=== PATIENT | male | born 1970 | race Caucasian/White ===

== ENCOUNTER → 2022-01-18 10:01 | Outpatient (CLI) | payer OTHER, SELFPAY ==
--- NOTE | ~2022-01-18 | MR_ITS ---
EXAMINATION: MR lumbar spine wo con DATE: 01/18/2022 10:23 INDICATION: Low back pain radiating down the left leg. TECHNIQUE: Magnetic resonance imaging (MRI) of the lumbar spine was performed without intravenous con trast. Sequences included sagittal T2-weighted FSE, sagittal T2-weighted FS FSE, sagittal T1-weighted FSE, and axial T2-weighted FSE. COMPARISON: None FINDINGS: Bone alignment is normal. Vertebral body heights are normal. There is mildly decreased disc height at L4-L5 and L5-S1. The distal spinal cord signal intensity is normal. The conus medullaris i s at the 12-L1. The following disc levels are specifically discussed: L1-L2: The disc does not extend beyond the endplate margin. There is mild bilateral facet joint osteo arthritis. There is no neural foraminal stenosis. There is no central canal stenosis. L2-L3: The disc does not extend beyond the endplate margin. There is moderate bilateral facet joint o steoarthritis. There is no neural foraminal stenosis. There is no central canal stenosis. L3-L4: The disc does not extend beyond the endplate margin. There is mild bilateral facet joint osteo arthritis. There is no neural foraminal stenosis. There is no central canal stenosis. L4-L5: There is a left subarticular zone extrusion with mass effect on left L5 nerve root in left lat eral recess. There is mild bilateral facet joint osteoarthritis. There is mild bilateral neural roger inal stenosis. There is mild central canal stenosis. There is moderate stenosis of left lateral reces s. L5-S1: The disc is bulging and has an annular fissure. There is severe bilateral facet joint osteoart hritis. There is mild bilateral neural foraminal stenosis. There is mild central canal stenosis. IMPRESSION: 1. Extrusion at L4-L5 with mass effect on left L5 nerve root. Otherwise mild lumbar spondylosis. Reviewed, dictated and finalized at location A. IMPRESSION: 1. Extrusion at L4-L5 with mass effect on left L5 nerve root. Otherwise mild eda mbar spondylosis.
== END ==
PROVIDERS: PCP Internal Medicine; Visit Provider Orthopaedic Surgery
DX: M51.26 Other intervertebral disc displacement, lumbar region (principal); M47.896 Other spondylosis, lumbar region
CPT/HCPCS: 72148

== ENCOUNTER 2023-09-08 14:37 | Emergency (ER) | payer OTHER, SELFPAY ==
[2023-09-08 14:45] VITALS: BP 140/97; PULSE 116; RESP 16; TEMP 36.9; O2SAT 100
--- NOTE | 2023-09-08 14:58 | ED.GENADULT ---
HPI - General Adult General Chief complaint: Chest Pain Stated complaint: Elevated blood pressure Source: patient and RN notes reviewed Mode of arrival: ambulatory Limitations: no limitations History of Present Illness HPI narrative: Patient presents today complaining of elevated blood pressure and heart rate. He has been keeping a record for 2-3 months and states today it was 140s over 90s at home and his heart rate was 117 and he became concerned. he denies any additional symptoms. He is not on a blood pressure medication and has an appointment with his new PCP on September 18. History of anxiety for which he takes sertraline and clonazepam he also takes atorvastatin for his cholesterol. Related Data Home Medications Medication Instructions Recorded Confirmed atorvastatin 10 mg tablet (Lipitor) 10 mg PO DAILY 12/30/21 09/08/23 gabapentin 600 mg tablet 600 mg PO TID 12/30/21 09/08/23 sertraline 50 mg tablet (Zoloft) 50 mg PO DAILY 12/30/21 09/08/23 clonazepam 1 mg tablet 1 mg PO HS 09/08/23 09/08/23 Allergies Allergy/AdvReac Type Severity Reaction Status Date / Time No Known Allergies Allergy Verified 09/08/23 14:45 Review of Systems Review of Systems: CONSTITUTIONAL: Denies body aches, fever, chills, or sweats. EYES: Denies visual changes, redness, or discharge. ENT: Denies rhinorrhea, congestion, sore throat, or otalgia. CARDIOVASCULAR: Denies chest pain, palpitations, or edema. RESPIRATORY: Denies cough or dyspnea. GASTROINTESTINAL: Denies abdominal pain, nausea, vomiting, or diarrhea. GENITOURINARY: Denies dysuria or hematuria. SKIN: Denies rash, itching, or wounds. MUSCULOSKELETAL: Denies back pain, joint pain, or myalgia. NEUROLOGIC: Denies headache, numbness, tingling, or weakness. PSYCH: + anxiety. [facility] Past Medical History Medical History Anxiety Degenerative joint disease (DJD) of hip Diarrhea Pain, radicular, lumbar Family History Family History Other Asthma Family history of diabetes mellitus Family history of high cholesterol Family history of pancreatic cancer Heart disease Hypertension Social History Social History Smoking status: Never smoker Alcohol intake: current Alcohol use details: 3 per month Substance use: never Living arrangements: with family Occupation/Education: retired Additional occupation/education comments: [employer] Gender identity (if verbalized by the patient): Male Comments At time of signature, I have reviewed and agree with nursing past medical, surgical, social and family history unless otherwise noted. Please see nursing chart for further information. There is no relevant family history pertinent to the presenting complaint Exam Narrative: GENERAL: Well-appearing, well-nourished, and in no acute distress. HEAD: Normocephalic, atraumatic. EYES: EOMI. No redness or drainage. Conjunctivae normal. ENT: Mucous membranes pink and moist. NECK: Normal AROM. CHEST: No respiratory distress. Clear to auscultation. HEART: Regular rhythm. + tachycardia. EXTREMITIES: Normal range of motion. No edema. SKIN: Warm, dry, no rash. Capillary refill normal. Normal skin turgor. NEURO: No focal deficits. Alert and oriented x3. Gait steady. PSYCH: Anxious Course Course Level of Care: Express Care Visit Vital Signs Vital signs: Vital Signs Temperature 98.5 F 09/08/23 14:45 Pulse Rate 116 H 09/08/23 14:45 Respiratory Rate 16 09/08/23 14:45 Blood Pressure 140/97 H 09/08/23 14:45 Pulse Oximetry 100 09/08/23 14:45 Temperature 98.5 F 09/08/23 14:45 Pulse Rate 116 H 09/08/23 14:45 Respiratory Rate 16 09/08/23 14:45 Blood Pressure 140/97 H 09/08/23 14:45 Pulse Oximetry 100 09/08/23 14:45 Reviewed Medi
== END 2023-09-08 15:09 | disposition home or self-care (01) ==
PROVIDERS: Emergency Provider Nurse Practitioner; PCP Family Medicine
DX: R03.0 Elevated blood-pressure reading, without diagnosis of hypertension (principal); F41.9 Anxiety disorder, unspecified
CPT/HCPCS: 99211; G0463

== ENCOUNTER 2023-10-12 10:36 | Outpatient (CLI) | payer OTHER, SELFPAY ==
--- NOTE | 2023-10-17 16:04 | WPDHOLTEREM ---
Holter/Event Monitor Holter/Event Monitor Date of procedure: 10/12/23 Holter/Event Procedure: 48 Hr Holter Monitor Indications: Bradycardia Conclusion: 1. 48 hour holter monitor on 10/12/23. 2. Underlying rhythm is sinus rhythm. HR range 47-145 bpm; average HR 72 bpm. HR at 47 bpm was at 23:20. HR at 145 bpm was at 11:05. 3. There are 25 premature supraventricular complexes. No supraventricular tachycardia. 4. No premature ventricular complexes. No ventricular tachycardia. 5. No sinoatrial or atrioventricular blocks. No significant pauses greater than 2 seconds. 6. Patient reports symptoms of dizziness, lightheadedness, palpitations which demonstrate sinus rhythm, HR range 70-106 bpm.
== END 2023-10-12 10:37 | disposition home or self-care (01) ==
LOC: ANHCARD 10:37
PROVIDERS: PCP Family Medicine; Visit Provider Physician Assistant
DX: R00.0 Tachycardia, unspecified (principal); R53.83 Other fatigue; I49.8 Other specified cardiac arrhythmias
CPT/HCPCS: 93225; 93226

== ENCOUNTER 2023-11-14 22:38 | Observation (INO) | payer OTHER, SELFPAY ==
--- NOTE | ~2023-11-14 | MR_ITS ---
MRI of the lumbar spine Clinical History: Radiculopathy Technique: Axial T2-weighted images, and sagittal T1-weighted, T2-weighted, and T2 fat-sat images wer e acquired. Findings: There is no fracture or subluxation of the lumbar spine. Vertebral bodies maintain normal h eight and alignment. No bone marrow signal reality seen. At L1-L2, L2-L3, L3-L4, there is no disc bulge or herniation. There are moderate to advanced facet lorena int degenerative changes at these levels. No spinal canal stenosis at these levels. There is mild lef t neural foraminal narrowing at L2-L3. Remaining neural foramina at these levels are preserved. At L4-L5, there is disc protrusion extending from the central region to the left foraminal region, wi th moderate facet arthropathy bilaterally. There is mild central canal stenosis. There is moderate bi lateral neural foraminal narrowing. At L5-S1, there is mild disc bulge with moderate facet arthropathy. No central canal stenosis. Tiny f issure present. There is mild to moderate right neural foraminal narrowing. Left neural foramen prese rved. Paravertebral soft tissues are unremarkable. Impression: Moderate degenerative spondylosis at L4-L5 and L5-S1, as detailed above. Reviewed, dictated and finalized at location . Impression: Moderate degenerative spondylosis at L4-L5 and L5-S1, as detailed above.
--- NOTE | ~2023-11-14 | CT_ITS ---
Noncontrast CT scan of the lumbar spine CLINICAL HISTORY: Back pain TECHNIQUE: Axial noncontrast imaging of the lumbar spine was performed. Sagittal and coronal reformat dylan images were constructed. Dose reduction technique was used on this scan by utilizing automated ex posure control and iterative reconstruction technique. The dose-length product (DLP) was 719.92 mGy-c m. FINDINGS: There is no fracture or subluxation of the lumbar spine. Vertebral bodies maintain normal h eight and line. Vertebral disc spaces are well preserved. At L1-L2, there is no disc bulge or herniation. There is minimal facet joint degenerative change. No spinal canal stenosis. Probable minimal left neural foraminal narrowing. Right neural foramen preserv ed. At L2-L3, there is no significant disc bulge or herniation. There is minimal facet arthropathy. No sp inal canal stenosis. There is mild left neural foraminal narrowing. L3-L4, there is no disc bulge or herniation. There is mild to moderate facet arthropathy. No central canal stenosis or definite neural foraminal narrowing. At L4-L5, there is disc protrusion at the left paracentral region with mild facet arthropathy. There is moderate to possibly severe canal stenosis/thecal sac compression. There is moderate bilateral eran ral foraminal narrowing. At L5-S1, there is no significant disc bulge or herniation. No spinal canal stenosis. There is modera te right neural foraminal narrowing, and mild left neural foraminal narrowing. Paravertebral soft tissues are unremarkable. Impression: Left paracentral disc protrusion at L4-L5 with moderate to severe spinal canal stenosis/thecal sac co mpression. Neural foraminal narrowing at L4-L5 and L5-S1 levels, as detailed above. Possible minimal neural foraminal narrowing at L1-L2 and L2-L3, as detailed above. Reviewed, dictated and finalized at location . Impression: Left paracentral disc protrusion at L4-L5 with moderate to severe spinal canal stenosis/thecal sac compression. Neural foraminal narrowing at L4-L5 and L5-S1 levels, as detailed above. Possible minimal neural foraminal narrowing at L1-L2 and L2-L3, as detailed abo ve.
[2023-11-14 22:44] VITALS: BP 146/93; PULSE 81; RESP 14; TEMP 36.7; O2SAT 99
[2023-11-14 23:17] VITALS: PULSE 79; RESP 16; O2SAT 96
[2023-11-14 23:30] VITALS: BP 154/95; PULSE 82; RESP 12; O2SAT 97
[2023-11-14 23:31] VITALS: PULSE 81; RESP 19; O2SAT 98
[2023-11-14 23:45] VITALS: BP 155/96; PULSE 77; RESP 16; O2SAT 100
--- NOTE | 2023-11-14 23:45 | ED.BACK ---
HPI - Back Pain/Injury General Chief Complaint: Fall <LIZBETH Winston Last Filed: 11/15/23 01:48> Stated Complaint: BACK PAIN X 1 MONTH, FALL <LIZBETH Winston Last Filed: 11/15/23 01:48> Time Seen by Provider: 11/14/23 23:38 <LIZBETH Winston Last Filed: 11/15/23 01:48> Source: patient <LIZBETH Winston Last Filed: 11/15/23 01:48> Mode of arrival: EMS <LIZBETH Winston Last Filed: 11/15/23 01:48> Limitations: no limitations <LIZBETH Winston Last Filed: 11/15/23 01:48> History of Present Illness HPI Narrative: This is a 53 year old male that presents to the ER for low back pain. Ongoing over the last month. Reports he was rolling to get out of bed tonight and his back locked up on him. He lowered himself to the floor. Reports since he has had pain and spasming in his low back and into his left leg. Reports tingling in his left leg. Denies decreased ROM, saddle anesthesia or bowel/bladder incontinence. <LIZBETH Winston Last Filed: 11/15/23 01:48> Related Data Home Medications: Home Medications Medication Instructions Recorded Confirmed atorvastatin 10 mg tablet (Lipitor) 10 mg PO DAILY 12/30/21 10/19/23 gabapentin 600 mg tablet 600 mg PO TID 12/30/21 10/19/23 sertraline 50 mg tablet (Zoloft) 50 mg PO DAILY 12/30/21 10/19/23 clonazepam 1 mg tablet 1 mg PO HS 09/08/23 10/19/23 tadalafil 10 mg tablet 10 mg PO DAILY PRN 09/18/23 10/19/23 <LIZBETH Winston Last Filed: 11/15/23 01:48> Allergies/Adverse Reactions: Allergies Allergy/AdvReac Type Severity Reaction Status Date / Time No Known Allergies Allergy Verified 11/14/23 22:51 <LIZBETH Winston Last Filed: 11/15/23 01:48> Review of Systems Review of Systems: CONSTITUTIONAL: Denies fever MUSCULOSKELETAL: Reports back pain, joint pain, and myalgia. NEUROLOGIC: Denies weakness. <Holly Escalante PA-C - Last Filed: 11/15/23 01:48> All systems reviewed & are unremarkable except as noted in HPI and below <Holly Escalante PA-C - Last Filed: 11/15/23 01:48> [facility] Past Medical History Medical History: Medical History Anxiety Degenerative joint disease (DJD) of hip Erectile dysfunction ANA (generalized anxiety disorder) HLD (hyperlipidemia) HTN (hypertension) Insomnia Pain, radicular, lumbar <LIZBETH Winston Last Filed: 11/15/23 01:48> Surgical History Surgical History: Surgical History History of appendectomy History of tonsillectomy History of vasectomy twice <LIZBETH Winston Last Filed: 11/15/23 01:48> Family History Family History: Family History Father Asthma Family history of pancreatic cancer Diabetes mellitus Hypertension Depression Heart disease Mother Diabetes mellitus Hypertension Heart disease Other Family history of diabetes mellitus Family history of high cholesterol <LIZBETH Winston Last Filed: 11/15/23 01:48> Social History Social History: Social History Social History: Smoking status: Never smoker Second hand tobacco smoke exposure: No Alcohol intake: current Alcohol use details: 3 per month Substance use: never Substance use type: does not use Do You Feel Safe in your Home?: Yes Lack of Transportation: No Lack of Food: Never True Current Housing: I Have Housing Concerned About Future Housing: No Difficulty Paying Gas/Electric Bills: No Difficulty Paying for Meds: No Currently Unemployed: YES Education: Don't Know Difficulty w/ Childcare or Family Care: No Living arrangements: with family Occupation/Education: retired Additional occupation/education comments: [employer]
[2023-11-14 23:46] VITALS: PULSE 73; RESP 15; O2SAT 100
[2023-11-14] MEDS: ACETAMINOPHEN 500 MG TABLET 1000 MG PO (23:53)
[2023-11-14] MEDS: diazePAM INJ (*CRX) 10 MG/2 ML SYRINGE 5 MG IV PUSH (23:53)
[2023-11-15] VITALS (15 sets, daily range): BP systolic 119–155; BP diastolic 82–98; PULSE 74–106; RESP 11–20; TEMP 36.9–37.2; O2SAT 94–100; BMI 28.8
--- NOTE | 2023-11-15 01:12 | PC.NURSE ---
this rn assumed care of patient. this rn took patient report from JIN Wilson.
[2023-11-15] MEDS: ONDANSETRON INJ 4 MG/2 ML VIAL IV PUSH (01:40)
[2023-11-15] MEDS: MORPHINE SULFATE (*CRX) 4 MG/ML INJ IV PUSH (01:40)
--- NOTE | 2023-11-15 02:04 | PM.IMHP ---
H&P: HPI History of Present Illness Date/Time: 11/15/23 02:04 Chief Complaint: Fall, Back Pain Narrative: 53 y/o M presents here with fall and subsequent back pain with PMH of HTN, ANA, HLD, insomnia, and erectile dysfunction. Patient presented here from home via EMS for further evaluation of back pain. Patient reports that he was getting out of bed to use the restroom around 1030pm when his lower back became sharp, with radiation into left buttock/hip/thigh, posterior, and accompanied by muscle spasms. Patient then had a near ground level fall. Patient felt his lower back seize up and he rolled/lowered himself onto the floor without any additional pain or injuries. Reporting numbness to his buttocks/hip and posterior RLE. Patient reports there has been partial resolution of the numbness. No numbness to his genitalia or perineum. No loss of bowel or bladder. Patient had similar pain approximately 4 weeks ago, was seen by his PCP who prescribed him steroids. The steroids initially helped for 2 days and then the pain returned. Patient has not been doing any lifting or strenuous activity over the last 4 weeks, did have to restrain his 90 lb dog before going to bed last night. Most recent MRI of spine was in 2021. EMS administered 15 mg of Toradol while in route to the hospital. Given morphine, Tylenol, and diazepam without relief from lower back pain. CT of the lumbar spine was was unrevealing. Has history of lumbar radiculopathy. Has previously tried conservative management, attended physical therapy and saw a chiropractor in 2020. No further therapy since. Initial VS at presentation: 98.0? F, HR 81, RR 14, 146/93, and 99% on RA. ED workup showed: No leukocytosis, no anemia, sodium 134, creatinine 0.9, glucose 135. CT of the lumbar spine showed no acute fractures. Review of Systems Review of Systems: All systems reviewed & are unremarkable except as noted in HPI and below PMFSH Past Medical History Medical History Anxiety Degenerative joint disease (DJD) of hip Erectile dysfunction ANA (generalized anxiety disorder) HLD (hyperlipidemia) HTN (hypertension) Insomnia Pain, radicular, lumbar Surgical History Surgical History History of appendectomy History of tonsillectomy History of vasectomy twice Family History Family History (Updated 11/15/23 @ 05:05 by Toshia Hameed RN) Father Diabetes mellitus Depression Heart disease Family history of pancreatic cancer Hypertension Asthma Mother Diabetes mellitus Heart disease Hypertension History of blood clots Other Family history of diabetes mellitus Family history of high cholesterol Social History Social History Social History: Smoking status: Never smoker Second hand tobacco smoke exposure: No Alcohol intake: current Alcohol use details: 3 per month Substance use: never Substance use type: does not use Do You Feel Safe in your Home?: Yes Lack of Transportation: No Lack of Food: Never True Current Housing: I Have Housing Concerned About Future Housing: No Difficulty Paying Gas/Electric Bills: No Difficulty Paying for Meds: No Currently Unemployed: No Education: Don't Know Difficulty w/ Childcare or Family Care: No Living arrangements: with family Occupation/Education: retired Additional occupation/education comments: [employer] Gender identity (if verbalized by the patient): Male Sexual Orientation (if Verbalized by the Patient): Straight or Heterosexual Spiritual care concerns: No Meds Home Medications and Allergies Home Medications Medication Instructions Recorded Confirmed Type atorvastatin 10 mg tablet (Lipitor) 10 mg PO HS 12/30/21 11/15/23 History gabapentin 600 mg tablet 600 mg PO TID 12/30/21
[2023-11-15 02:13] LABS: Basophils Percent Auto 0.3 % (0.2-1.2); Eosinophils Absolute Auto 0.1 K/mm3 (0-0.3); Eosinophils Percent Auto 0.6 % (0-4.4); Hematocrit 42.1 % (42.0-52.0); Immature Granulocyte Absolute 0.05 K/mm3 (0.00-0.031); Immature Granulocyte Percent A 0.5 % (0-0.5); Lymphocytes Absolute Auto 1.11 K/mm3 (0.9-3.2); Lymphocytes Percent Auto 11.8 % (18.3-44.2); Mean Corpuscular HGB Conc 33.3 g/dl (32-36); Mean Corpuscular Hemoglobin 27.8 pg (26-34); Mean Corpuscular Volume 83.5 fl (80-100); Mean Platelet Volume 12.1 fl (7.4-10.4); Monocytes Absolute Auto 0.3 K/mm3 (0.1-0.6); Monocytes Percent Auto 3.6 % (2.6-8.5); Neutrophils Absolute Auto 7.8 K/mm3 (1.3-6.7); Neutrophils Percent Auto 83.2 % (45.5-73.1); Platelet Count Result 155 k/mm3 (150-375); Red Blood Count 5.04 M/mm3 (4.6-6.20); Red Cell Distribution Width 13.5 % (11.5-14.5); White Blood Count 9.4 K/mm3 (4.5-10.0)
[2023-11-15 02:29] LABS: Anion Gap 3 mmol/L (4-12); Blood Urea Nitrogen 18 mg/dL (9-20); Calcium 9.5 mg/dL (8.4-10.2); Carbon Dioxide 25 mmol/L (22-30); Chloride 106 mmol/L (98-107); Estimated CRCL calculation 90 ml/min; Estimated Glomerular Filt Rate > 60; Glucose 135 mg/dL (65-110); Potassium 4.2 mmol/L (3.4-5.0); Sodium 134 mmol/L (137-145)
[2023-11-15] MEDS: MORPHINE SULFATE (*CRX) 2 MG/ML INJ IV PUSH ×3 (04:57→14:32)
--- NOTE | 2023-11-15 05:03 | ADMGEN ---
This patient, Vasquez Hawkins, was admitted to 3 [facility] Surg Room 313-01. Patient/family oriented to hospital policies and general routines including ID bracelet, bed and alarms, visiting hours, pain management, procedures, bathroom and other care routines, personal items, smoking policy, room service/diet, and visiting hours. Information on how to activate the Rapid Response Team has been discussed. Patient/Family are encouraged to report perceived risks to care and to ask questions if they do not understand what they are told or what they should do.
[2023-11-15] MEDS: oxyCODONE HCL (*CRX) 2.5 MG TAB IR PO ×3 (05:59→22:28)
[2023-11-15 07:23] LABS: Hemoglobin A1C 5.5 % (<5.7)
[2023-11-15] MEDS: lisinopriL 10 MG TABLET PO (09:55)
[2023-11-15] MEDS: predniSONE 40 MG, predniSONE 10 MG 50 MG PO (09:56)
[2023-11-15] MEDS: GABAPENTIN 300 MG CAPSULE 600 MG PO ×3 (09:56→16:08)
[2023-11-15] MEDS: SERTRALINE HCL 50 MG TABLET PO (09:56)
--- NOTE | 2023-11-15 13:11 | WPDNEURCNPN ---
Assessment and Plan Assessment and plan (1) Left lumbar radiculopathy: Code(s): M54.16 - Radiculopathy, lumbar region Status: Acute (2) Lumbar spondylosis: Code(s): M47.816 - Spondylosis without myelopathy or radiculopathy, lumbar region Status: Acute Assessment and Plan: Patient is a pleasant 53-year-old male who presents with acute exacerbation of back pain and spasms with left leg symptoms. His symptoms started approximately 1 month ago but in the last day or so it has severely progressed. Patient also reports numbness and tingling in his left leg in an S1 distribution. his lumbar MRI obtained on today's date shows degenerative spondylosis with an ongoing paracentral left-sided disc herniation/ protrusion at L4-5 contributing to moderate stenosis in addition to bilateral facet severe arthropathy and thickened ligamentum flavum. There is narrowing of the lateral recess, left greater than right. On exam the patient has mild weakness of the left dorsiflexion that is 4/5, and left EHL is 4-/5. though has decreased sensation to pinprick left S1 distribution greater than L5 but decreased in both distributions in the left foot compared to the right. I discussed the MRI findings with the patient and went over his diagnosis. At this point in time we recommend continued conservative treatments in the form of muscle relaxants, pain control, short course of steroids to see if we can get him feeling better. We can plan to have the patient follow-up with us in the clinic setting to track his progress and discuss possible further interventions which would include referral to pain management and PT. if his symptoms do not improve then we could also discuss possible surgical intervention with Dr. Mccabe. Patient and his family give understanding of this and agree with the planned. Consult date: 11/15/23 HPI: Vasquez Hawkins is a 53 year old male who presented to the ER for intractable back spasms and pain with left leg symptoms. He states his back pain started to bother him approximately 1 month ago after rolling to get out of bed. He initially just had low back pain with a locked up feeling but then shortly thereafter started noticie pain radiating into the left hip area and hamstring, and then the lateral aspect of his lower leg and into this foot. He also reports tingling sensation along this distribution and into his toes. Patient states his pain worsened and he was not able to deal with the spasms, thus prompting him to present to the emergency room. He denies any right leg symptoms, no bladder or bowel dysfunction, and no prior history of having back surgeries. He admits to having back pain in the past that led to workup including an MRI in 2021, he states he was referred to Pain Management but by the time he had this appointment his symptoms mostly resolved and he did not proceed in doing any type of treatments with them. Patient denies any weakness but states he's not been able to ambulate in the last couple of days due to the severity of his discomfort. Review of Systems Review of Systems: All systems reviewed & are unremarkable except as noted in HPI and below PMFSH Past Medical History Medical History Anxiety Degenerative joint disease (DJD) of hip Erectile dysfunction ANA (generalized anxiety disorder) HLD (hyperlipidemia) HTN (hypertension) Insomnia Pain, radicular, lumbar Surgical History Surgical History History of appendectomy History of tonsillectomy History of vasectomy twice Family History Family History (Updated 11/15/23 @ 05:05 by Toshia Hameed RN) Father Diabetes mellitus Depression Heart disease Family history of pancreatic cancer Hypertension Asthma Mother Diabetes mellitus Heart disease Hypertension History of blood clots Other Family
--- NOTE | 2023-11-15 14:16 | PM.IMPN ---
Progress Note: A&P Assessment and Plan (1) Left lumbar radiculopathy: Code(s): M54.16 - Radiculopathy, lumbar region Status: Acute Assessment and Plan: - CT lumbar spine: shows Left paracentral disc protrusion at L4-L5 with moderate to severe spinal canal stenosis/thecal sac compression - given Toradol, morphine, Valium, Tylenol without relief - continue pain control - add steroids, prednisone 50 mg x 6 days - MRI, previous (2021): Extrusion at L4-L5 with mass effect on left L5 nerve root. Otherwise mild lumbar spondylosis. - neurosurgery consultation - neurology consultation - MRI ordered (2) HTN (hypertension): Code(s): I10 - Essential (primary) hypertension Status: Acute Assessment and Plan: - chronic, and stable Bp at 126/82 Subjective Date/time seen: 11/15/23 14:16 Interval history: 53 y/o M presents here with fall and subsequent back pain with PMH of HTN, ANA, HLD, insomnia, and erectile dysfunction. Patient presented here from home via EMS for further evaluation of back pain.?complains of severe low back pains radiating down left buttock down leg and numbness in the foot Pt having urgent MRI L/S today Neurology and neurosurgery on board Continue pain control for now CT lumbar spine shows - Left paracentral disc protrusion at L4-L5 with moderate to severe spinal canal stenosis/thecal sac compression. Review of Systems Review of Systems: Severe low back pain with left buttock and left leg and foot numbness Exam Const: General: no acute distress and uncomfortable Other: , male, nontoxic appearance HENMT: Face/Nose/Sinus: Normal nares present Mouth: Yes moist mucous membranes Eyes: General: appearance normal, both eyes and all related structures Sclera: sclerae normal Pupils: Equal, round and reactive pupils present EOM: EOMs intact bilaterally Resp: Effort & Inspection: normal respiratory effort Auscultation: clear to auscultation bilaterally Cardio: Rate: regular rate Rhythm: regular rhythm Other: S1-S2 present without murmur, rub, ectopy GI: Other: Rounded, nontender Skin: General skin exam: normal color and no rashes or lesions noted Wounds: no wounds Neuro: Speech: normal speech Other: Difficult exam due to pain. LLE weakness 4/5 with plantar flexion and dorsiflexion, 5/5 in upper extremities and RLE. Sensation changes to posterior thigh, buttock, hip. Patient unable to tolerate exam. Extrem: General: normal to inspection Psych: Mental Status: mental status grossly normal Other: Pained. Fair insight and judgment, pleasant. Objective Data Vital Signs Vital Signs: Vital Signs - 24 hr 11/14/23 22:44 11/14/23 23:17 11/14/23 23:30 Temperature 36.7 C Pulse Rate 81 79 82 Respiratory Rate 14 16 12 Blood Pressure 146/93 H 154/95 H Pulse Oximetry 99 96 97 Oxygen Delivery Room Air 11/14/23 23:31 11/14/23 23:45 11/14/23 23:46 Temperature Pulse Rate 81 77 73 Respiratory Rate 19 16 15 Blood Pressure 155/96 H Pulse Oximetry 98 100 100 Oxygen Delivery 11/15/23 00:00 11/15/23 00:01 11/15/23 00:15 Temperature Pulse Rate 87 85 78 Respiratory Rate 13 15 16 Blood Pressure 139/92 H Pulse Oximetry 94 95 98 Oxygen Delivery 11/15/23 00:51 11/15/23 01:00 11/15/23 01:31 Temperature Pulse Rate 84 84 74 Respiratory Rate 13 13 14 Blood Pressure 155/88 H 143/87 H 155/83 H Pulse Oximetry 100 100 99 Oxygen Delivery 11/15/23 02:00 11/15/23 02:30 11/15/23 03:05 Temperature Pulse Rate 79 88 85 Respiratory Rate 11 L 14 14 Blood Pressure 145/86 H 119/96 H 143/98 H Pulse Oximetry 98 97 97 Oxygen Delivery 11/15/23 03:08 11/15/23 03:31 11/15/23 06:00 Temperature 37.2 C Pulse Rate 79 85 92 Respiratory Rate 13 16 20 Blood Pressure 143/98 H 149/83 H 126/82 Pulse Oximetry 98 97 97 Oxygen Delivery Intake/Output Intake/Output: Intake &
[2023-11-15] MEDS: diazePAM (*CRX) 5 MG TABLET PO (16:08)
[2023-11-15] MEDS: ACETAMINOPHEN 500 MG TABLET 1000 MG PO (21:28)
[2023-11-15] MEDS: ATORVASTATIN 10 MG TABLET PO (21:28)
[2023-11-15] MEDS: KETOROLAC 30 MG/ML VIAL (*BKC) IV PUSH (21:43)
[2023-11-16] MEDS: diazePAM (*CRX) 5 MG TABLET PO ×3 (00:10→13:58)
[2023-11-16 06:00] VITALS: BP 144/92; PULSE 82; RESP 20; TEMP 36.8; O2SAT 95
[2023-11-16] MEDS: oxyCODONE HCL (*CRX) 2.5 MG TAB IR PO ×4 (06:15→21:08)
[2023-11-16] MEDS: ACETAMINOPHEN 500 MG TABLET 1000 MG PO (06:15)
[2023-11-16 06:38] LABS: Hematocrit 44.2 % (42.0-52.0); Hemoglobin 14.2 g/dL (14.0-18.0); Mean Corpuscular HGB Conc 32.1 g/dl (32-36); Mean Corpuscular Hemoglobin 27.3 pg (26-34); Mean Corpuscular Volume 84.8 fl (80-100); Mean Platelet Volume 12.3 fl (7.4-10.4); Platelet Count Result 157 k/mm3 (150-375); Red Blood Count 5.21 M/mm3 (4.6-6.20); Red Cell Distribution Width 13.5 % (11.5-14.5); White Blood Count 7.5 K/mm3 (4.5-10.0)
[2023-11-16 06:46] LABS: Anion Gap 4 mmol/L (4-12); Blood Urea Nitrogen 16 mg/dL (9-20); Calcium 9.6 mg/dL (8.4-10.2); Carbon Dioxide 28 mmol/L (22-30); Chloride 106 mmol/L (98-107); Estimated CRCL calculation 82 ml/min; Estimated Glomerular Filt Rate > 60; Glucose 108 mg/dL (65-110); Potassium 4.2 mmol/L (3.4-5.0); Sodium 138 mmol/L (137-145)
[2023-11-16] MEDS: GABAPENTIN 300 MG CAPSULE 600 MG PO ×3 (09:16→16:35)
[2023-11-16] MEDS: predniSONE 40 MG, predniSONE 10 MG 50 MG PO (09:16)
[2023-11-16] MEDS: LIDOCAINE 5% PATCH 1 PATCH TRANSDERM (09:18)
--- NOTE | 2023-11-16 12:42 | PM.IMPN ---
Progress Note: A&P Assessment and Plan (1) Left lumbar radiculopathy: Code(s): M54.16 - Radiculopathy, lumbar region Status: Acute Assessment and Plan: - CT lumbar spine: shows Left paracentral disc protrusion at L4-L5 with moderate to severe spinal canal stenosis/thecal sac compression - given Toradol, morphine, Valium, Tylenol without relief - continue pain control - add steroids, prednisone 50 mg x 6 days - MRI, previous (2021): Extrusion at L4-L5 with mass effect on left L5 nerve root. Otherwise mild lumbar spondylosis. - neurosurgery consultation - neurology consultation - MRI obtained on today's date shows degenerative spondylosis with an ongoing paracentral left-sided disc herniation/ protrusion at L4-5? contributing to moderate stenosis in addition to bilateral facet severe arthropathy and thickened ligamentum flavum.? There is narrowing of the lateral recess, left greater than right. - continue present care hopeful DC isa with services (2) HTN (hypertension): Code(s): I10 - Essential (primary) hypertension Status: Acute Assessment and Plan: - chronic, and stable Bp at 144/92 - likely secondary to steroids Subjective Date/time seen: 11/16/23 12:42 Interval history: 53 y/o M presents here with fall and subsequent back pain with PMH of HTN, ANA, HLD, insomnia, and erectile dysfunction. Patient presented here from home via EMS for further evaluation of back pain.?complains of severe low back pains radiating down left buttock down leg and numbness in the foot 11/15/2023Neurology and neurosurgery on board Continue pain control for now CT lumbar spine shows - Left paracentral disc protrusion at L4-L5 with moderate to severe spinal canal stenosis/thecal sac compression. 11/16/2023- MRI obtained on today's date shows degenerative spondylosis with an ongoing paracentral left-sided disc herniation/ protrusion at L4-5? contributing to moderate stenosis in addition to bilateral facet severe arthropathy and thickened ligamentum flavum.? There is narrowing of the lateral recess, left greater than right. Pt to continue with PT/ OT today and pain medications and DC tomorrow Review of Systems Review of Systems: Severe low back pain with left buttock and left leg and foot numbness much improved All systems reviewed & are unremarkable except as noted in HPI and below Exam Const: General: no acute distress and uncomfortable Other: , male, nontoxic appearance HENMT: Face/Nose/Sinus: Normal nares present Mouth: Yes moist mucous membranes Eyes: General: appearance normal, both eyes and all related structures Sclera: sclerae normal Pupils: Equal, round and reactive pupils present EOM: EOMs intact bilaterally Resp: Effort & Inspection: normal respiratory effort Auscultation: clear to auscultation bilaterally Cardio: Rate: regular rate Rhythm: regular rhythm Other: S1-S2 present without murmur, rub, ectopy GI: Other: Rounded, nontender Skin: General skin exam: normal color and no rashes or lesions noted Wounds: no wounds Neuro: Cranial nerves: Yes Equal, round and reactive pupils present Speech: normal speech Other: Difficult exam due to pain. LLE weakness 4/5 with plantar flexion and dorsiflexion, 5/5 in upper extremities and RLE. Sensation changes to posterior thigh, buttock, hip. Patient unable to tolerate exam. Extrem: General: normal to inspection Psych: Mental Status: mental status grossly normal Other: Pained. Fair insight and judgment, pleasant. Objective Data Vital Signs Vital Signs: Vital Signs - 24 hr 11/15/23 14:00 11/15/23 20:20 11/15/23 20:00 Temperature 36.9 C 37.2 C Pulse Rate 96 106 H Respiratory Rate 20 20 20 Blood Pressure 148/92 H 138/84 Pulse Oximetry 96 97 Oxygen Delivery Room Air 11/16/23 06:00 11/16/23 08:25 Temperature 36.8 C Pulse Rate 82 Respiratory Rate 20 Blood Pres
[2023-11-16 14:00] VITALS: BP 132/84; PULSE 93; RESP 16; TEMP 36.6; O2SAT 97
[2023-11-16 20:00] VITALS: O2SAT 96
[2023-11-16] MEDS: ATORVASTATIN 10 MG TABLET PO (21:08)
[2023-11-16 22:00] VITALS: BP 113/72; PULSE 73; RESP 16; TEMP 36.8; O2SAT 96
[2023-11-17] MEDS: oxyCODONE HCL (*CRX) 2.5 MG TAB IR PO ×3 (04:30→15:10)
[2023-11-17 06:00] VITALS: BP 123/78; PULSE 75; RESP 16; TEMP 36.8; O2SAT 99
[2023-11-17] MEDS: diazePAM (*CRX) 5 MG TABLET PO ×2 (06:25→15:08)
[2023-11-17] MEDS: predniSONE 20 MG TABLET 40 MG PO (08:39)
[2023-11-17] MEDS: LIDOCAINE 5% PATCH 1 PATCH TRANSDERM (08:40)
[2023-11-17] MEDS: GABAPENTIN 300 MG CAPSULE 600 MG PO ×3 (08:40→15:59)
[2023-11-17] MEDS: KETOROLAC 15 MG/ML VIAL (*BKC) IV PUSH ×2 (10:12→15:59)
--- NOTE | 2023-11-17 14:23 | PM.DS ---
DS: Admitting Diagnosis Discharge Date 11/17/23 Admitting Diagnosis left lumbar radiculopathy HTN DS: Summary Hospital Course Reason for hospitalization: left lumbar radiculopathy HTN Hospital Course: This is a 53-year-old male presented to the hospital on 11/15/2023 with complaints of back pain. Workup in the hospital included a lumbar spine CT shown L4-L5 moderate to severe spinal canal stenosis with disc protrusion, neural foraminal narrowing at L4-L5 and L5-S1 levels, possible minimal neural foraminal narrowing at L1-L2 and L2-L3. Lumbar spine MRI showing moderate degenerative spondylosis of L4-L5 and L5-S1. Initial labs showed a sodium count of 134 otherwise was unremarkable. He was given Valium, pain medication, Toradol, Tylenol. Neurosurgery was consulted and will stick with conservative measures for now. Labs today were unremarkable. He states that his pain is quite improved from yesterday. He denies any fever, chills, nausea, vomiting, diarrhea, abdominal pain, chest pain, shortness a breath, incontinence. Stable for discharge at this time. He will need to follow up with his primary care physician in 1 week, go to outpatient physical therapy for stretching exercises, and follow up with Neurosurgery in 2 weeks. Final diagnosis: Left lumbar radiculopathy Status at Discharge Cognitive/behavioral status at discharge: Alert oriented x4 Functional status at discharge: independent ambulation Overall status at discharge: patient is progressing back to baseline Time Spent with Patient Time attestation: Total time spent providing and/or coordinating discharge services: Time spent: Greater than 30 minutes Exam Narrative: General: In no acute distress, well nourished Head: atraumatic, no encephalopathy Eyes: EOMI, PERRLA, sclera clear ENT: moist mucous membranes, nasal passages clear Neck: supple, no JVD, no adenopathy, trachea midline Cardiac: Normal S1 and S2. RRR, No murmur, gallops or friction rubs, peripheral pulses intact. Respiratory: Lungs clear to auscultation, no adventitious lung sounds, currently on room air Gastrointestinal: soft, non-distended, non-tender, normoactive bowel sounds. : voiding without difficulty. Extremities: moves all extremities well, no edema, good ROM, strength 5/5 Skin: clean, dry, intact. No wounds or lesions. Neuro: Alert and oriented x4, cranial nerves intact, no neuro deficits. Psych: normal mood, normal affect, interactive DS: Data Data Completed and Pending Completed studies during hospitalization: Lumbar Spine CT Lumbar spine MRI Pending studies at discharge: NOne Procedures/Treatments: None Discharge Plan Discharge Attending physician on discharge: Steve Reed Consulting providers: Jayna Mccabe; Holly Escalante Discharging Clinician: Tasha Garcia Anticipated Discharge Date/Time: 11/17/23 14:03 Patient Disposition: Home, Self-Care Activity: as tolerated Diet: as tolerated Discharge Instructions: Use ice/heat as needed for comfort See physical therapy for stretching exercises on an outpatient basis. Follow up with Neurosurgery in 2 weeks Follow up with PCP in 1 week Do not take Ibuprofen with Tramadol. Take one or the other. If you have additional pain, you can take Tylenol. Finish your steroids as instructed. I prescribed Flexeril for muscle spasms. Take this as prescribed. Patient Instructions: Antibiotic Form Patient Language: Congolese Stand Alone Forms: General Discharge Information Follow-up/Referrals: Jayna Mccabe MD [Physician] - 2 Weeks Discharge Medications: New ketorolac 10 mg tablet 10 mg PO Q6H Qty: 40 0RF Rx Instructions: maximum total duration of 5 days from all oral, intranasal, or parenteral formulations cyclobenzaprine 10 mg tablet 10 mg PO Q8H Qty: 60 0RF prednisone 5 mg tablets,dose pack See Rx Instructions .ROUTE .COMPLEX Qty: 36 0RF Rx Instructions: pred
== END 2023-11-17 16:15 | disposition home or self-care (01) ==
LOC: ANHED 11-15 02:08 → ANH3MEDSUR 11-15 03:52
PROVIDERS: Student in an Organized Health Care Education/Training Program; Admitting Provider Internal Medicine; Emergency Provider Physician Assistant; PCP Family Medicine; Visit Provider Internal Medicine
DX: M51.16 Intervertebral disc disorders with radiculopathy, lumbar region (principal); M47.26 Other spondylosis with radiculopathy, lumbar region; M48.061 Spinal stenosis, lumbar region without neurogenic claudication; I10 Essential (primary) hypertension; E78.5 Hyperlipidemia, unspecified; F41.1 Generalized anxiety disorder; Z79.899 Other long term (current) drug therapy
CPT/HCPCS: 36415; 72131; 72148; 80048; 83036; 85025; 85027; 96374; 96375; 96376; 97161; 97165; 97535; 99285; A9270; G0378; J1885; J2270; J2405; J3360; J7512

== ENCOUNTER 2024-01-26 08:18 | Outpatient (CLI) | payer OTHER, SELFPAY ==
--- NOTE | 2024-01-26 08:33 | EST_ITS ---
Patient Info Name: Vasquez Hawkins Age: 53 years : 1970 Gender: Male Ht: 61 in Wt: 205 lbs BSA: 2.05 m2 HR: 73 bpm BP: 143 / 83 mmHg Heart Rhythm: Sinus Rhythm Exam Date: 01/26/2024 8:44 AM Exam Location: [facility] Patient Status: Outpatient Admit Date: 01/26/2024 Staff Ordering Physician: Mejia Senior DO Attending Provider: Mejia Senior DO Exercise Technologist: Yue Mendez CT Exercise Physician: Mejia Senior DO Exam Type: CA stress test treadmill Study Info Indications R00.2 - Palpitations A treadmill exercise stress test was performed. Summary 1. 1. Negative Mejia exercise stress test for ischemic ST changes by ECG criteria. 2. 2. Good functional capacity, achieving 10 METs of workload. 3. 3. Appropriate HR response to exercise. 4. 4. Appropriate HR recovery at 1 minute post exercise. 5. 5. No imaging with stress testing. 6. 6. Patient informed of the above results. Protocol: Mejia Stress ECG Details Stage: REST Duration (min): 0 min : 55 sec Speed (mph): 0.0 Grade (%): 0 HR (bpm): 73 SBP (mmHg): 143 DBP (mmHg): 83 METS: --- Stage: REST Duration (min): 6 min : 57 sec Speed (mph): 0.0 Grade (%): 0 HR (bpm): 89 SBP (mmHg): 143 DBP (mmHg): 83 METS: --- Stage: STAGE 1 Duration (min): 1 min : 0 sec Speed (mph): 1.7 Grade (%): 10 HR (bpm): 103 SBP (mmHg): 143 DBP (mmHg): 83 METS: --- Stage: STAGE 1 Duration (min): 2 min : 0 sec Speed (mph): 1.7 Grade (%): 10 HR (bpm): 107 SBP (mmHg): 143 DBP (mmHg): 83 METS: --- Stage: STAGE 1 Duration (min): 3 min : 0 sec Speed (mph): 1.7 Grade (%): 10 HR (bpm): 107 SBP (mmHg): 148 DBP (mmHg): 83 METS: --- Stage: STAGE 2 Duration (min): 1 min : 0 sec Speed (mph): 2.5 Grade (%): 12 HR (bpm): 118 SBP (mmHg): 148 DBP (mmHg): 83 METS: --- Stage: STAGE 2 Duration (min): 2 min : 0 sec Speed (mph): 2.5 Grade (%): 12 HR (bpm): 119 SBP (mmHg): 164 DBP (mmHg): 84 METS: --- Stage: STAGE 2 Duration (min): 3 min : 0 sec Speed (mph): 2.5 Grade (%): 12 HR (bpm): 127 SBP (mmHg): 164 DBP (mmHg): 84 METS: --- Stage: STAGE 3 Duration (min): 1 min : 0 sec Speed (mph): 3.4 Grade (%): 14 HR (bpm): 138 SBP (mmHg): 173 DBP (mmHg): 86 METS: --- Stage: STAGE 3 Duration (min): 2 min : 0 sec Speed (mph): 3.4 Grade (%): 14 HR (bpm): 139 SBP (mmHg): 173 DBP (mmHg): 86 METS: --- Stage: STAGE 3 Duration (min): 2 min : 0 sec Speed (mph): 3.4 Grade (%): 14 HR (bpm): 139 SBP (mmHg): 173 DBP (mmHg): 86 METS: --- Stage: RECOVERY Duration (min): 0 min : 59 sec Speed (mph): 0.0 Grade (%): 0 HR (bpm): 119 SBP (mmHg): 155 DBP (mmHg): 82 METS: --- Stage: RECOVERY Duration (min): 1 min : 59 sec Speed (mph): 0.0 Grade (%): 0 HR (bpm): 97 SBP (mmHg): 155 DBP (mmHg): 82 METS: ---
== END 2024-01-26 08:19 | disposition home or self-care (01) ==
LOC: ANHCARD 08:19
PROVIDERS: PCP Family Medicine; Visit Provider Internal Medicine Cardiovascular Disease
DX: R00.2 Palpitations (principal)
CPT/HCPCS: 93017

== ENCOUNTER 2024-03-15 08:17 | Outpatient (CLI) | payer OTHER, SELFPAY ==
[2024-03-15 08:57] LABS: Add Urine Microscopic? NO; Appearance Urine Clear (Clear); Bilirubin Urine Negative (Negative); Blood Urine Negative (Negative); Color Urine Yellow (Yellow); Glucose Urine UA Negative (Negative); Ketones Urine Negative (Negative); Leukocyte Esterase Ur Negative LEU/UL (Negative); Nitrate Urine Negative (Negative); Protein Urine Negative (Negative); Specific Grav Ur 1.006 (1.001-1.035); Urobilinogen Urine 0.2 mg/dL (<2.0)
[2024-03-15 09:02] LABS: Hematocrit 45.4 % (42.0-52.0); Hemoglobin 14.3 g/dL (14.0-18.0); Mean Corpuscular HGB Conc 31.5 g/dl (32-36); Mean Corpuscular Hemoglobin 27.5 pg (26-34); Mean Corpuscular Volume 87.3 fl (80-100); Mean Platelet Volume 12.4 fl (7.4-10.4); Platelet Count Result 168 k/mm3 (150-375); Red Cell Distribution Width 13.1 % (11.5-14.5)
[2024-03-15 09:11] LABS: Anion Gap 7 mmol/L (4-12); Blood Urea Nitrogen 19 mg/dL (9-20); Calcium 9.3 mg/dL (8.4-10.2); Carbon Dioxide 29 mmol/L (22-30); Chloride 101 mmol/L (98-107); Estimated Glomerular Filt Rate > 60; Glucose 83 mg/dL (65-110); Potassium 4.3 mmol/L (3.4-5.0); Sodium 137 mmol/L (137-145)
[2024-03-15 09:13] LABS: Partial Thromboplastin Time 27.6 Seconds (22.3-36.8); Prothrombin Time 13.5 Seconds (11.1-14.7)
== END 2024-03-15 08:18 | disposition home or self-care (01) ==
LOC: ANHSURGERY 08:23
PROVIDERS: PCP Family Medicine; Visit Provider Neurological Surgery
DX: M51.26 Other intervertebral disc displacement, lumbar region (principal); Z01.818 Encounter for other preprocedural examination
CPT/HCPCS: 36415; 80048; 81003; 85027; 85610; 85730

== ENCOUNTER 2024-03-19 02:19 | Day surgery (SDC) | payer OTHER, SELFPAY ==
--- NOTE | 2024-03-14 14:10 | SUR.PREOP ---
Report to the Outpatient Waiting Room, entrance under the green pavilion located off [facility], at time 10:30 on date 03/19/24. Planned Procedure Time: 12:30. Time changes happen often and if your time is changed the preop area will call you the afternoon before. - You and your visitor will be asked to self-screen and do not enter if you have any COVID symptoms. - A mask is optional within the hospital at this time. Patients may have clear liquids (water, carbonated beverages, clear teas, apple juice) until 3 hours prior to surgery with a maximum of 20 ounces. - No food from midnight until time of surgery Take the following medications with a SIP of water the morning of surgery: MAY TAKE SERTRALINE THE DAY OF PROCEDURE DO NOT STOP ANY OF YOUR OTHER PRESCRIPTION MEDICATIONS PRIOR TO SURGERY ?EXCEPT THE FOLLOWING Medications to discontinue per physician N/A Date to take last dose N/A Please no make-up, nail greenlandic, hairspray, perfume, deodorant, or body powder the day of surgery. No jewelry (including any body piercings) or valuables the day of surgery, leave them at home. Please take a shower or bath the night before, or the morning of, surgery with an antibacterial soap. Wear comfortable, loose fitting clothing. Children are encouraged to wear pajamas. - Jewelry must be removed prior to entering the operating room. Rings and piercings that are not removed may be cut off. - The hospital will not accept responsibility for valuables. - Please leave all valuables, including medications, at home the day of surgery. If you are going home after surgery, a licensed commercial trailer truck driver must drive you home. - NO public transportation without another adult if you receive anesthesia. - We recommend that an adult stay with you for 24 hours following discharge. - We also recommend that you do not drive, make important decision, drink alcoholic beverages, or take any drugs that were not prescribed by your health care provider for at least 24 hours after your discharge time. Follow any additional instructions given to you from your surgeon. If you or anyone in your household have experienced Covid symptoms in the past week, please notify your surgeon or the nurse liaison at the phone number below for possible testing. Telephone instructions given to SAM MENEZES and asked if any additional questions and then verbalized understanding. Patient advised to call surgeon office or pre surgery nurse liaison [phone] if any additional questions.
[2024-03-14 14:34] VITALS: BMI 28.0
[2024-03-19] VITALS (9 sets, daily range): BP systolic 117–152; BP diastolic 69–97; PULSE 64–87; RESP 12–18; TEMP 36.3–36.6; O2SAT 98–100; BMI 28.0
--- NOTE | ~2024-03-19 | XR_ITS ---
EXAMINATION: XR fluoroscopy no charge DATE: 03/19/2024 13:45 CDT INDICATION: LEFT L4-5 MICRODISCECTOMY . TECHNIQUE: 1 fluoroscopic image of the lumbar spine was obtained during left L4-5 microdiscectomy, pe rformed by Adrian Manzano MD. I was not present during the procedure. Fluoroscopy exposure time w as 0.6 seconds. Air Kerma 0.5501 mGy. DAP 0.0109 mGym2. COMPARISON: None FINDINGS/IMPRESSION: Fluoroscopic documentation of left L4-5 microdiscectomy. Please refer to the operative note for compl ete procedural details . Reviewed, dictated and finalized at location K.
--- NOTE | 2024-03-19 11:02 | WPDANESEPPF ---
Anes - Initial Pre Proc Eval Procedure: Operation Date: 03/19/24 12:30 Proposed Procedures p Left L4-5 Microdiscectomy - Adrian Manzano MD Date/Time: 03/19/24 11:02 Surgeon: Adrian Manzano MD Pre Op Diagnosis: left L4-5, herniated nucleous pulposis Patient Data Age: 53 Gender: M Height: 1.83 m Weight: 94.05 kg Last Vital Signs Temp 36.3 C L 03/19/24 10:48 Pulse 76 03/19/24 10:48 Resp 18 03/19/24 10:48 BP 152/82 H 03/19/24 10:48 Pulse Ox 98 03/19/24 10:48 Allergies Allergy/AdvReac Type Severity Reaction Status Date / Time No Known Allergies Allergy Verified 03/19/24 10:44 Home Medications Medication Instructions Recorded Confirmed Type gabapentin 600 mg tablet 600 mg PO TID 12/30/21 03/14/24 History lisinopril 10 mg tablet 10 mg PO DAILY #90 tabs 11/30/23 03/14/24 Rx atorvastatin 10 mg tablet (Lipitor) 10 mg PO HS #90 tabs 01/15/24 03/14/24 Rx sertraline 50 mg tablet (Zoloft) 50 mg PO HS 03/14/24 03/14/24 History Patient hx anesthesia problems: none Family hx anesthesia problems: none Results Review: All pre-operative results and documents have been reviewed as part of the pre-operative evaluation. [facility] Past Medical History Medical History Anxiety Degenerative joint disease (DJD) of hip Erectile dysfunction ANA (generalized anxiety disorder) HLD (hyperlipidemia) HTN (hypertension) Insomnia Pain, radicular, lumbar Surgical History Surgical History History of appendectomy History of tonsillectomy History of vasectomy twice Family History Family History Father Diabetes mellitus Depression Heart disease Family history of pancreatic cancer Hypertension Asthma Mother Diabetes mellitus Heart disease Hypertension History of blood clots Other Family history of diabetes mellitus Family history of high cholesterol Social History Social History Social History: Smoking status: Never smoker Second hand tobacco smoke exposure: No Alcohol intake: current Alcohol use details: 3 per month Substance use: never Substance use type: does not use Do You Feel Safe in your Home?: Yes Lack of Transportation: No Lack of Food: Never True Current Housing: Decline to Answer Concerned About Future Housing: Decline to Answer Difficulty Paying Gas/Electric Bills: Decline to Answer Difficulty Paying for Meds: Decline to Answer Currently Unemployed: Decline to Answer Education: Decline to Answer Difficulty w/ Childcare or Family Care: Decline to Answer Living arrangements: with family Occupation/Education: retired Additional occupation/education comments: [place] [employer] Gender identity (if verbalized by the patient): Male Sexual Orientation (if Verbalized by the Patient): Straight or Heterosexual Spiritual care concerns: No Anes - Eval Final PreProcedure Day of Procedure 03/19/24 11:02 Patient weight: overweight Heart: regular rate and rhythm Lungs: clear to auscultation Airway: Mallampati scale class II Neurological: alert and oriented Last oral intake: >/= 8 hours ASA classification: II Emergent: no Anesthetic plan: proceed Anesthesia type and monitoring: general ETT and standard monitoring Results Review: All pre-operative results and documents have been reviewed as part of the pre-operative evaluation. Informed Consent: The patient's anesthetic plan and its attendant risks and benefits were discussed with the patient/family/POA. Questions were solicited and answers provided to the satisfaction of the patient/family/POA.
[2024-03-19] MEDS: LACTATED RINGERS 1,000 ML 30 ML IV CONT ×2 (11:48→14:49)
--- NOTE | 2024-03-19 13:26 | PM.IMHP ---
H&P: HPI History of Present Illness Date/Time: 03/19/24 13:26 Chief Complaint: Back and leg pain Narrative: Vasquez is a 53-year-old gentleman with pain in his back radiating to his left lower extremity. This started in September or early October. He noticed it when he got out of bed and does not remember specific inciting event. The pain began in his back but then radiated into his left hip area and hamstring. It finally went all the way down to the foot. It goes into his toes. He has had pain like this in the past and an MRI demonstrated a problem at L4-5 on the left. He does not note specific muscle group weakness or dermatomal numbness. However, he was found to have mild dorsiflexion in EHL weakness on the left at a recent admission. His pain is severe and limiting for him. Review of Systems Review of Systems: Const Details: Const All systems reviewed & are unremarkable except as noted in HPI and below Denies chills, Denies fever(s), Denies weakness, Denies weight gain and Denies weight loss Eyes Denies change in vision and Denies diplopia ENT Denies neck pain and Denies disequilibrium Card Denies chest pain and Denies dyspnea Resp Denies cough and Denies dyspnea GI Denies abdominal pain, Denies change in bowel habits, Denies fecal incontinence and Denies vomiting Denies hematuria, Denies oliguria, Denies difficulty urinating, Denies dysuria, Denies urinary frequency, Denies urinary hesitancy, Denies urinary incontinence and Denies urinary urgency Musc Reports as per HPI, Reports back pain, Denies muscle weakness, Denies neck pain, Reports numbness and Denies stiffness Skin/ Breast Reports system reviewed and no additional complaints, except as documented Neuro Reports as per HPI, Denies burning sensations, Denies focal weakness, Reports numbness, Denies Other visual disturbances, Reports radicular pain, Reports paresthesias, Denies disequilibrium and Denies weakness Psych Reports no additional complaints, Denies depression and Denies hopelessness Endo Reports no additional complaints and Denies polyuria Rogelio/ Lymph Reports no additional complaints Aller/ Immun Reports no additional complaints PMFSH Past Medical History Medical History Anxiety Degenerative joint disease (DJD) of hip Erectile dysfunction ANA (generalized anxiety disorder) HLD (hyperlipidemia) HTN (hypertension) Insomnia Pain, radicular, lumbar Surgical History Surgical History History of appendectomy History of tonsillectomy History of vasectomy twice Family History Family History Father Diabetes mellitus Depression Heart disease Family history of pancreatic cancer Hypertension Asthma Mother Diabetes mellitus Heart disease Hypertension History of blood clots Other Family history of diabetes mellitus Family history of high cholesterol Social History Social History Social History: Smoking status: Never smoker Second hand tobacco smoke exposure: No Alcohol intake: current Alcohol use details: 3 per month Substance use: never Substance use type: does not use Do You Feel Safe in your Home?: Yes Lack of Transportation: No Lack of Food: Never True Current Housing: Decline to Answer Concerned About Future Housing: Decline to Answer Difficulty Paying Gas/Electric Bills: Decline to Answer Difficulty Paying for Meds: Decline to Answer Currently Unemployed: Decline to Answer Education: Decline to Answer Difficulty w/ Childcare or Family Care: Decline to Answer Living arrangements: with family Occupation/Education: retired Additional occupation/education comments: [place] [employer] Gender identity (if verbalized by the patient): Male Sexual Orientation (if Verbali
[2024-03-19] MEDS: ceFAZolin 2 GM/D5W 50 ML 2 GM/50 ML BAG IVPB (13:35)
[2024-03-19] MEDS: LIDO 1%/EPINEPHRINE 1:100,000 20 ML VIAL 10 ML INFILTRATE (13:57)
--- NOTE | 2024-03-19 15:10 | WPDHPUPDATE1 ---
History and Physical Update Update Date/Time: 03/19/24 13:30 History and Physical has been reviewed, including an updated exam of the patient. There are NO changes in the patient's condition. Risks, benefits, and alternatives have been discussed and questions answered. Patient agrees to proceed with procedure.
--- NOTE | 2024-03-19 15:19 | P.OP_ITS ---
Procedure Note - Detailed Date of Procedure 03/19/24 Pre-op Diagnosis left L4-5, herniated nucleous pulposis Post-op Diagnosis Same Procedure Performed L3-5 laminectomy Surgeon Adrian Manzano MD Anesthesia General Description of Procedure Patient was brought to the operating room in the supine position, was sedated, intubated placed under general anesthesia in routine fashion. He was then turned into the prone position on a Edinson frame. Ever operation his back was examined, marked for incision, prepped and draped in routine sterile fashion. Incision was marked over the L4-L5 spinous processes in the midline. This area was injected with 0.5% lidocaine with [id number] epinephrine. Intravenous antibi otics given prior to incision. Incision was made with a 10 blade scalpel down to the lumbodorsal fascia. A subperiosteal dissection of the muscle soft tissue with the spinous process and lamina at L4-5 on the left was performed with a subperiosteal elevator and Bovie cautery. A verifying x-rays obtained to verify the level of operation. At the L4-5 level on the left a Midas Nnamdi drill was used to perform a hemilaminectomy and medial facetectomy. Under microscopy the yellow ligament was lifted removed piecemeal using Kerrison punches. Plane was dissected in the lateral epidural space down to the ventral epidural space. This thecal sac was retracted medially exposing a subligamentous disc herniation below. The ligament was entered using an 11 blade scalpel. An Meggan curette, curved curette and Mittal rongeur were used to push free and removed fragments of herniated disc from beneath the nerve. This was done until a dental instrument could be placed in the lateral epidural space above and below the nerve root towards the foramen to confirm lack of compression. The wound was then copiously irrigated with bacitracin irrigation all bleeding stopped with bipolar Bovie cautery and Gelfoam thrombin powder. The wound was then closed in layered fashion with 2-0 Vicryl interrupted sutures in the lumbodorsal fascia and Analilia's layer. 3-0 Vicryl buried interrupted sutures were placed in the dermis the skin was closed with a running 4-0 Monocryl subcuticular stitch and dressed with Dermabond. The patient was loud wake up in the operating room and was taken to the recovery room in stable condition. There were no immediate complications of this operation. All counts were reported correct at the end of the case. Blood loss was 25 cc. The patient was neurologically at his baseline postoperatively. CPT codes: 55507, 70764 Estimated Blood Loss 25 IV Fluids 1,000 Complications None Condition Stable Disposition PACU [facility] Billing Surgery - Charge Forward: Surgery Billing
[2024-03-19] MEDS: oxyCODONE HCL (*CRX) 5 MG TAB IR PO (16:00)
== END 2024-03-19 16:41 | disposition home or self-care (01) ==
PROVIDERS: PCP Family Medicine; Visit Provider Neurological Surgery
PROC: (CPT 63030; principal; 2024-03-19 12:30)
DX: M51.26 Other intervertebral disc displacement, lumbar region (principal); I10 Essential (primary) hypertension; E78.5 Hyperlipidemia, unspecified; F41.1 Generalized anxiety disorder
CPT/HCPCS: 63030; 99199; A9270; J0330; J0690; J1100; J2405; J2704; J3010; J7120

== ENCOUNTER → 2024-05-27 15:00 | Outpatient (REF) | payer OTHER, SELFPAY | LOC: ANHLAB 15:00 | PROVIDERS: PCP Family Medicine; Visit Provider Plastic Surgery | DX: C44.519 Basal cell carcinoma of skin of other part of trunk (principal) | CPT/HCPCS: 88305 ==